=== PATIENT | male | born 1975 | race African-American/Black ===

== ENCOUNTER 2017-10-16 11:32 | Emergency (ER) | payer OTHER ==
[~2017-10-16] VITALS: Ht 180.3 cm; Wt 97.2 kg
[~2017-10-16 11:32] MED LIST: ALBUTEROL SULF8.5 GM IH; BACTRIM,SEPT1 TABLE1 PO; DAILY VITAMIN1 EAC4 PO; EPIVIR150 MG PO; ETRAVIRINE PO; FISH OIL 1,0001 EAC8 PO; INTELENCE100 MG PO; INTELENCE200 MG PO; INTELENCE25 MG PO; LEVAQUIN750 MG PO; MOTRIN800 MG PO; NORVIR PO; NORVIR100 MG PO; PREDNISONE10 MG PO; PREZISTA PO; PREZISTA75 MG PO; TRUVADA PO; TRUVADA1 TABLET PO; VIREAD PO; XARELTO1 EACH PO; ZOFRAN4 MG PO; [UNRECOGNIZED DRUG - OTHER] PO
[2017-10-16 13:09] VITALS: BP 155/88
== END 2017-10-16 13:27 | disposition home or self-care (01) ==
LOC: EME 11:32
DX: T40.5X1A Poisoning by cocaine, accidental (unintentional), initial encounter (principal); K21.9 Gastro-esophageal reflux disease without esophagitis; Z21 Asymptomatic human immunodeficiency virus [HIV] infection status; F17.200 Nicotine dependence, unspecified, uncomplicated
CPT/HCPCS: 93005; 99281; 99284

== ENCOUNTER 2017-12-08 19:23 | Inpatient (IN) | payer OTHER ==
[~2017-12-08] VITALS: Ht 180.3 cm; Wt 75.5 kg
[2017-12-08 21:00] LABS: HEMATOCRIT 32.7 % (38.0-50.0); HEMOGLOBIN 11.3 G/DL (12.5-16.6); MCH 32.5 PG (29.0-34.0); MCHC 34.6 G/DL (30.0-36.0); PLATELET COUNT 271 K/uL (156-360); RBC DIS.WIDTH-CV 12.1 % (11.8-14.6); RBC DIS.WIDTH-SD 41.7 % (39-53); RED BLOOD COUNT 3.48 M/uL (4.00-5.50); WHITE BLOOD COUNT 3.5 K/uL (4.1-10.2)
[2017-12-08 21:11] LABS: ALBUMIN 3.5 g/dL (3.2-4.8); CHLORIDE 108 mEq/L (99-109); POTASSIUM 3.1 mEq/L (3.7-5.4); SODIUM 142 mEq/L (136-147)
[2017-12-08 21:14] LABS: GLUCOSE 82 mg/dL (70-99); TOTAL PROTEIN 7.3 g/dL (6.4-8.3)
[2017-12-08 21:15] LABS: TOTAL BILIRUBIN 0.4 mg/dL (0.0-1.0)
[2017-12-08 21:17] LABS: ALKALINE PHOSPHATASE 70 IU/L (3-129); CREATININE 1.1 mg/dL (0.6-1.3); GFR ESTIMATE (CALCULATED) > 59 mL/min/ (58.99-99999)
[2017-12-08 21:18] LABS: UREA NITROGEN (BUN) 8 mg/dL (9-23)
[2017-12-08 21:19] LABS: AST (GOT) 21 IU/L (2-34)
[2017-12-08 21:20] LABS: ALT (GPT) 15 IU/L (3-49)
[2017-12-08 23:18] LABS: ERTH.SED.RATE 49 MM/HR (0-15)
[2017-12-08 23:26] LABS: C-REACTIVE PROTEIN 20.7 MG/L (0-10)
[2017-12-08 23:35] LABS: MAGNESIUM 1.9 mg/dl (1.3-2.7)
[2017-12-09 06:39] VITALS: BP 142/80
[2017-12-09 08:46] LABS: THYROTROPIN (TSH) 1.6 MIU/L (0.4-5.5)
[2017-12-11 14:28] LABS: HEPATITIS B SURFACE ANTIGEN Nonreactive
[2017-12-11 14:29] LABS: HEPATITIS C ANTIBODY Nonreactive
[2017-12-11 14:30] LABS: ANTI-HEPATITIS A VIRUS (IGM) Nonreactive
[2017-12-11 14:31] LABS: ANTI-HEPATITIS B CORE (IGM) Nonreactive
[2017-12-11 15:06] LABS: HEPATITIS B SURFACE ANTIBODY REACTIVE
== END 2017-12-09 06:38 | disposition left against medical advice (07) | DRG 947 ==
LOC: EME 19:23 → EDOF 12-09 05:44 → CANRESERV 12-09 05:47 → ENRESERV 12-09 05:47 → EDOF 12-09 06:38
DX: R53.1 Weakness (principal); J18.1 Lobar pneumonia, unspecified organism; Z21 Asymptomatic human immunodeficiency virus [HIV] infection status; Z91.14 Patient's other noncompliance with medication regimen; R50.9 Fever, unspecified; M54.5 Low back pain; F12.90 Cannabis use, unspecified, uncomplicated; J18.9 Pneumonia, unspecified organism
CPT/HCPCS: 70450; 71260; 72125; 72158; 74177; 80053; 80074; 83605; 83735; 84443; 84550; 85027; 85652; 86140; 86618; 86706; 87040; 99281; 99285

== ENCOUNTER 2018-01-09 16:00 | Inpatient (IN) | payer OTHER ==
[~2018-01-09] VITALS: Ht 180.3 cm; Wt 76.8 kg
[2018-01-09 17:13] LABS: BASOPHIL (%) 0.5 % (0-1); EOSINOPHIL (%) 4.6 % (0-5); EOSINOPHIL COUNT 0.2 K/uL (0-0.3); HEMATOCRIT 31.7 % (38.0-50.0); HEMOGLOBIN 11.2 G/DL (12.5-16.6); IMMATURE GRANULOCYTE (%) 1.5 % (0.0-0.7); LYMPHOCYTE (%) 20.2 % (15-42); LYMPHOCYTE COUNT 0.8 K/uL (1.0-2.8); MCH 32.7 PG (29.0-34.0); MCHC 35.3 G/DL (30.0-36.0); MCV 92.7 FL (86-99); MONOCYTE (%) 10.7 % (3-12); MONOCYTE COUNT 0.4 K/uL (0-0.8); NEUTROPHIL (%) 62.5 % (45-76); NEUTROPHIL COUNT 2.6 K/uL (1.8-6.4); PLATELET COUNT 161 K/uL (156-360); RBC DIS.WIDTH-SD 43.9 % (39-53); RED BLOOD COUNT 3.42 M/uL (4.00-5.50); WHITE BLOOD COUNT 4.1 K/uL (4.1-10.2)
[2018-01-09 17:27] LABS: ALBUMIN 3.4 g/dL (3.2-4.8); CHLORIDE 108 mEq/L (99-109); POTASSIUM 3.1 mEq/L (3.7-5.4); SODIUM 144 mEq/L (136-147)
[2018-01-09 17:30] LABS: GLUCOSE 114 mg/dL (70-99); TOTAL PROTEIN 6.8 g/dL (6.4-8.3)
[2018-01-09 17:32] LABS: TOTAL BILIRUBIN 0.4 mg/dL (0.0-1.0)
[2018-01-09 17:33] LABS: ALKALINE PHOSPHATASE 93 IU/L (3-129); CREATININE 0.9 mg/dL (0.6-1.3); GFR ESTIMATE (CALCULATED) > 59 mL/min/ (58.99-99999)
[2018-01-09 17:34] LABS: UREA NITROGEN (BUN) 6 mg/dL (9-23)
[2018-01-09 17:35] LABS: AST (GOT) 24 IU/L (2-34)
[2018-01-09 17:36] LABS: ALT (GPT) 14 IU/L (3-49)
[2018-01-09 18:57] LABS: PTT 26.8 SEC (25-37)
[2018-01-09] MEDS ORDERED: BACTRIM,SEPT1 TABLET PO (20:22)
[2018-01-09] MEDS ORDERED: DIFLUCAN200 MG PO (20:23)
[2018-01-09] MEDS ORDERED: NYSTATIN100000 UN1 PO (20:23)
[2018-01-10 00:26] VITALS: BP 136/86
[2018-01-10 01:53] LABS: HEMATOCRIT 29.9 % (38.0-50.0); HEMOGLOBIN 10.5 G/DL (12.5-16.6); MCH 32.5 PG (29.0-34.0); MCHC 35.1 G/DL (30.0-36.0); MCV 92.6 FL (86-99); PLATELET COUNT 164 K/uL (156-360); RBC DIS.WIDTH-SD 43.8 % (39-53); RED BLOOD COUNT 3.23 M/uL (4.00-5.50); WHITE BLOOD COUNT 3.6 K/uL (4.1-10.2)
[2018-01-10 02:06] LABS: CHLORIDE 109 mEq/L (99-109); POTASSIUM 2.9 mEq/L (3.7-5.4)
[2018-01-10 02:07] LABS: SODIUM 146 mEq/L (136-147)
[2018-01-10 02:08] LABS: GLUCOSE 111 mg/dL (70-99)
[2018-01-10 02:12] LABS: CREATININE 0.9 mg/dL (0.6-1.3); GFR ESTIMATE (CALCULATED) > 59 mL/min/ (58.99-99999)
[2018-01-10 02:13] LABS: UREA NITROGEN (BUN) 6 mg/dL (9-23)
[2018-01-10 04:21] VITALS: BP 143/81
[2018-01-10 07:16] VITALS: BP 133/70
[2018-01-10 11:26] VITALS: BP 139/83
[2018-01-10 15:45] VITALS: BP 152/92
[2018-01-10 22:39] VITALS: BP 131/78
[2018-01-11 07:15] VITALS: BP 151/93
[2018-01-11] MEDS ORDERED: XARELTO15 MG PO (11:22)
[2018-01-13 17:57] LABS: CD4/CD8 Ratio 0.03 (0.86-5.00)
== END 2018-01-11 16:12 | disposition home or self-care (01) | DRG 175 ==
LOC: EME 16:00 → 5EAST 22:59 → EDOF 22:59 → ENRESERV 23:00 → 5EAST 01-10 00:24
PROVIDERS: Hospitalist; Nurse Practitioner Family; Physician Assistant
DX: I26.99 Other pulmonary embolism without acute cor pulmonale (principal); B20 Human immunodeficiency virus [HIV] disease; I82.412 Acute embolism and thrombosis of left femoral vein; I82.501 Chronic embolism and thrombosis of unspecified deep veins of right lower extremity; B37.0 Candidal stomatitis; Z91.14 Patient's other noncompliance with medication regimen; K13.21 Leukoplakia of oral mucosa, including tongue; F12.90 Cannabis use, unspecified, uncomplicated; F17.200 Nicotine dependence, unspecified, uncomplicated; Z59.0 Homelessness
CPT/HCPCS: 71275; 80048; 80053; 85025; 85027; 85610; 85730; 86355 90; 86359 90; 86360 90; 87536; 93970; 99281; 99285; J7030